=== PATIENT | female | born 1995 | race Caucasian/White ===

== ENCOUNTER 2017-02-26 14:51 | Outpatient (CLI) | payer OTHER ==
[2017-02-26 15:05] LABS: BASOPHILS % 0.7 (0.0-1.5); EOSINOPHILS % 2.3 % (0.0-6.8); MEAN CORPUSCULAR VOLUME 88.5 fl (80.0-100.0); MONOCYTES % 5.3 % (0.0-11.0); NEUTROPHILS # 3.4 # k/uL (1.4-7.7)
[2017-02-26 15:36] LABS: eGFR (African) > 60; eGFR (Non-African) > 60
== END 2017-02-26 14:52 ==
LOC: LAB 14:51
PROVIDERS: ATTEND Family Medicine
DX: D51.0 Vitamin B12 deficiency anemia due to intrinsic factor deficiency (principal); F41.9 Anxiety disorder, unspecified
CPT/HCPCS: 36415; 80048; 82607; 84443; 85025

== ENCOUNTER 2017-06-11 14:53 | Outpatient (CLI) | payer OTHER | END 2017-06-11 14:54 | LOC: LAB 14:53 | PROVIDERS: ATTEND Physician Assistant | DX: E55.9 Vitamin D deficiency, unspecified (principal); R53.83 Other fatigue | CPT/HCPCS: 36415; 82306 ==

== ENCOUNTER 2017-06-11 16:24 | Outpatient (CLI) | payer OTHER | END 2017-06-11 16:25 | LOC: LABRHC 16:24 | PROVIDERS: ATTEND Physician Assistant | DX: Z01.419 Encounter for gynecological examination (general) (routine) without abnormal findings (principal) | CPT/HCPCS: 88148; G0143 ==

== ENCOUNTER 2018-03-22 15:53 | Outpatient (CLI) | payer OTHER ==
[2018-03-22 16:15] LABS: MEAN CORPUSCULAR HEMOGLOBIN 30.5 pg (28.0-34.0)
[2018-03-22 16:32] LABS: eGFR (Non-African) > 60
== END 2018-03-22 15:55 ==
LOC: LAB 15:53
PROVIDERS: ATTEND Physician Assistant
DX: D51.0 Vitamin B12 deficiency anemia due to intrinsic factor deficiency (principal); R20.0 Anesthesia of skin; E55.9 Vitamin D deficiency, unspecified
CPT/HCPCS: 36415; 80053; 82607; 82652; 84439; 84443; 84481; 85027